=== PATIENT | female | born 1985 | race Caucasian/White ===

== ENCOUNTER 2016-10-25 05:27 | Inpatient (IN) | payer OTHER ==
[~2016-10-25] VITALS: Ht 175.3 cm; Wt 86.8 kg
[2016-10-25] MEDS ORDERED: LACTATED RINGERS 1,000 ML IV SCH ×2 (05:30→05:32)
[2016-10-25] MEDS ORDERED: OXYTOCIN 30U/ 0.9% NaCL 500ML 500 ML IV SCH (05:32)
[2016-10-25] MEDS ORDERED: SODIUM CITRATE/CITRIC ACID 30 ML UDC PO ONE (06:00)
[2016-10-25] MEDS ORDERED: METOCLOPRAMIDE 5 MG/ML, 2ML ONE ×2 (06:00→10:31)
[2016-10-25] MEDS ORDERED: LACTATED RINGERS 1,000 ML IVBOLUS ONE (06:00)
[2016-10-25] MEDS ORDERED: NEWBORN KIT ONE (06:00)
[2016-10-25] MEDS ORDERED: SODIUM CITRATE/CITRIC ACID 30 ML UDC ONE (06:00)
[2016-10-25] MEDS ORDERED: METOCLOPRAMIDE 5 MG/ML, 2ML IV ONE (06:00)
[2016-10-25 06:41] VITALS: BP 111/79
[2016-10-25] MEDS ORDERED: morphine SULFATE/PF 0.5 MG/ML, 10ML ONE (07:26)
[2016-10-25] MEDS ORDERED: MISOPROSTOL 200 MCG TABLET ONE (07:33)
[2016-10-25] MEDS ORDERED: OXYTOCIN 30U/ 0.9% NaCL 500ML 500 ML ONE (07:33)
[2016-10-25] MEDS ORDERED: ZONI100C2 PO (07:40)
[2016-10-25] MEDS ORDERED: PHENYLEPHRINE 10 MG/ML ONE (07:49)
[2016-10-25] MEDS ORDERED: CEFAZOLIN 1,000 MG ONE (07:49)
[2016-10-25] MEDS: LACTATED RINGERS 1,000 ML IV SCH ×4 (08:57→21:30)
[2016-10-25] MEDS: OXYTOCIN 30U/ 0.9% NaCL 500ML 500 ML IV SCH ×2 (08:57→18:57)
[2016-10-25] MEDS ORDERED: GLYCERIN ADULT SUPP PR PRN (09:00)
[2016-10-25] MEDS ORDERED: ACETAMINOPHEN 325 MG TABLET PO PRN (09:00)
[2016-10-25] MEDS ORDERED: OXYcodone/APAP 5/325MG TABLET PO PRN (09:00)
[2016-10-25] MEDS ORDERED: SIMETHICONE 80 MG CHEW TAB PO PRN (09:00)
[2016-10-25] MEDS ORDERED: ONDANSETRON 2MG/ML, 2ML IV PRN (09:00)
[2016-10-25] MEDS ORDERED: CARBOPROST TROMETHAMINE 250 MCG/ML, 1ML IM PRN (09:00)
[2016-10-25] MEDS ORDERED: CALCIUM CARBONATE 500 MG TAB.CHEW PO PRN (09:00)
[2016-10-25] MEDS: PRENATAL VIT/IRON/FA 1 EACH TABLET PO SCH (09:00)
[2016-10-25] MEDS ORDERED: BISACODYL 10 MG SUPP PR PRN (09:00)
[2016-10-25] MEDS ORDERED: morphine SULFATE 10 MG/ML, 1ML IVPush PRN ×2 (09:00)
[2016-10-25] MEDS ORDERED: MISOPROSTOL 200 MCG TABLET PR PRN (09:00)
[2016-10-25] MEDS ORDERED: METHYLERGONOVINE 0.2 MG/ML IM PRN (09:00)
[2016-10-25] MEDS ORDERED: NYSTATIN HOMETD PRN (10:30)
[2016-10-25] MEDS ORDERED: METOCLOPRAMIDE 5 MG/ML, 2ML IVPush PRN (11:00)
[2016-10-25 11:30] VITALS: BP 96/51
[2016-10-25 12:30] VITALS: BP 99/49
[2016-10-25] MEDS ORDERED: HYDROmorphone 1 MG/ML, 1ML IVPush PRN (12:30)
[2016-10-25] MEDS ORDERED: NO SEDATIVES, TRANQUILIZERS OR ANTIEMETICS XX SCH (12:30)
[2016-10-25] MEDS ORDERED: NALOXONE 0.4 MG/ML, 1ML IV PRN (12:30)
[2016-10-25 16:30] VITALS: BP 110/71
[2016-10-25] MEDS: IBUPROFEN 600 MG TABLET PO PRN ×2 (16:39→23:42)
[2016-10-25] MEDS ORDERED: ZONISAMIDE 50 MG CAPSULE PO SCH ×3 (17:00)
[2016-10-25] MEDS: ZONISAMIDE HOMEMEDPO SCH (17:00)
[2016-10-25 20:00] VITALS: BP 115/65
[2016-10-25 23:50] VITALS: BP 114/64
[2016-10-26] MEDS: LACTATED RINGERS 1,000 ML IV SCH ×5 (00:57→16:57)
[2016-10-26] MEDS: OXYTOCIN 30U/ 0.9% NaCL 500ML 500 ML IV SCH ×2 (04:57→14:57)
[2016-10-26 05:05] VITALS: BP 107/63
[2016-10-26] MEDS: IBUPROFEN 600 MG TABLET PO PRN ×3 (05:06→20:02)
[2016-10-26] MEDS: PRENATAL VIT/IRON/FA 1 EACH TABLET PO SCH (09:00)
[2016-10-26] MEDS: DOCUSATE 100 MG CAPSULE PO PRN ×2 (11:38→20:02)
[2016-10-26 12:32] VITALS: BP 120/69
[2016-10-26 16:18] VITALS: BP 111/72
[2016-10-26] MEDS: ZONISAMIDE HOMEMEDPO SCH (17:00)
[2016-10-26 19:32] VITALS: BP 127/83
[2016-10-27 04:00] VITALS: BP 124/79
[2016-10-27] MEDS: IBUPROFEN 600 MG TABLET PO PRN ×2 (04:17→10:21)
[2016-10-27] MEDS: OXYcodone/APAP 5/325MG TABLET PO PRN ×2 (04:17→09:00)
[2016-10-27 07:50] VITALS: BP 106/68
[2016-10-27] MEDS ORDERED: ONDA4TAB7 PO (08:22)
[2016-10-27] MEDS ORDERED: IBUP-1222 PO (08:24)
[2016-10-27] MEDS ORDERED: OXYC-302 PO (08:26)
[2016-10-27] MEDS: PRENATAL VIT/IRON/FA 1 EACH TABLET PO SCH (09:00)
[2016-10-27] MEDS: DOCUSATE 100 MG CAPSULE PO PRN (09:00)
== END 2016-10-27 13:25 | disposition home or self-care (01) | DRG 765 ==
LOC: LDIP 05:27 → 2NW 11:20
PROVIDERS: ADMIT Obstetrics & Gynecology; ATTEND Obstetrics & Gynecology
PROC: 10D00Z1 Extraction of Products of Conception, Low, Open Approach (ICD-10-PCS; principal; 2016-10-25)
DX: O33.0 Maternal care for disproportion due to deformity of maternal pelvic bones (principal); O99.354 Diseases of the nervous system complicating childbirth; G40.909 Epilepsy, unspecified, not intractable, without status epilepticus; O69.81X0 Labor and delivery complicated by cord around neck, without compression, not applicable or unspecified; Z37.0 Single live birth; Z3A.39 39 weeks gestation of pregnancy; Z88.0 Allergy status to penicillin; Z79.899 Other long term (current) drug therapy
CPT/HCPCS: 36415; 82803; 85025; 86850; 86900; J0690; J2274; J2405; J2370; J2590; J2765; J7120